=== PATIENT | female | born 1945 | race Caucasian/White ===

== ENCOUNTER 2017-09-20 15:38 | Observation (INO) ==
--- NOTE | 2017-09-20 15:59 | Emergency Department Note ---
Disposition Clinical Impression: Chest pain, Congestive heart failure Disposition: Transfer Short-Term Hosp Condition: Fair Referrals: Venancio Castro, LAND DEVELOPMENT MANAGER [Primary Care Provider] - Forms: ED Satisfaction Letter, Work/School Release Time of Disposition: 17:54 General Adult HPI - General Chief complaint: ED General Medical Stated complaint: cough,unable to pee much,tightness in chest Source: patient Limitations: no limitations Nursing Notes Reviewed: Yes Vital Signs Reviewed: No - History of Present Illness HPI Narrative: Patient presents today with CC of: Chest pain Patient describes issue began around 7 days ago when the patient started developing intermittent chest pain and increasing fatigue. She describes the chest pain as a tightness in her chest. She is also had shortness of breath nausea and occasionally gets sweaty. She has multiple risk factors for cardiac disease. Patient has been history of heart disease she was a smoker in the past but quit she has hypertension and she weighs 291 pounds. Patient states she has never had any testing done on her heart. She is on 2 L of nasal cannula oxygen at night. Patient also has a history of GERD and hiatal hernia. Patient had [employer] [place] legs for lunch today. She denies surgery. She has not had any fever or hemoptysis. She said she has a history of kidney problems. Pain Scale: 0 - Related Data Home Medications Medication Instructions Recorded Confirmed Acetaminophen [Tylenol] 500 mg PO BID 09/20/17 09/20/17 Albuterol Sulfate [Ventolin Hfa] 18 gm IH TID 09/20/17 09/20/17 Aspirin [Lo-Dose Aspirin EC] 81 mg PO DAILY 09/20/17 09/20/17 Buspirone HCl [Buspar] 15 mg PO DAILY 09/20/17 09/20/17 Calcitriol 0.5 mcg PO DAILY 09/20/17 09/20/17 Cetirizine HCl [All Day Allergy] 10 mg PO DAILY 09/20/17 09/20/17 Docusate [Colace] 100 mg PO BID 09/20/17 09/20/17 Ferrous Sulfate [Iron] 325 mg PO DAILY 09/20/17 09/20/17 Furosemide [Lasix] 80 mg PO DAILY 09/20/17 09/20/17 Insulin Glargine,Hum.rec.anlog 35 unit SQ HS 09/20/17 09/20/17 [Lantus Solostar] Insulin LISPRO [Humalog] 0 unit SQ TID 09/20/17 09/20/17 Ipratropium/Albuterol Neb [Duoneb] 3 ml IH Q4HR 09/20/17 09/20/17 Losartan [Cozaar] 25 mg PO DAILY 09/20/17 09/20/17 Montelukast [Singulair] 10 mg PO DAILY 09/20/17 09/20/17 Mv W-Ca/Iron/FA/Lutein/Hrb#179 1 each PO DAILY 09/20/17 09/20/17 [Tyson Multivit For Women Caplet] Nitrofurantoin Macrocrystal 100 mg PO BID 09/20/17 09/20/17 [Nitrofurantoin] OxyCODONE/APAP 7.5/325 [Percocet 1 each PO Q6HR PRN 09/20/17 09/20/17 7.5/325 MG] Potassium Chloride [Klor-Con 10] 10 meq PO TID 09/20/17 09/20/17 Psyllium Husk [Metamucil] 660 gm PO DAILY 09/20/17 09/20/17 Ranitidine HCl [Acid Barrel Lapper] 150 mg PO BID 09/20/17 09/20/17 Ropinirole HCl [Requip] 3 mg PO BID 09/20/17 09/20/17 Sucralfate [Carafate] 1 gm PO 0730,1630 09/20/17 09/20/17 Tizanidine HCl [Zanaflex] 2 mg PO DAILY 09/20/17 09/20/17 Venlafaxine HCl [Venlafaxine HCl 150 mg PO DAILY 09/20/17 09/20/17 ER] Zonisamide [Zonegran] 50 mg PO DAILY 09/20/17 09/20/17 Zonisamide [Zonegran] 100 mg PO HS 09/20/17 09/20/17 Allergies Allergy/AdvReac Type Severity Reaction Status Date / Time allopurinol Allergy See Verified 07/10/16 10:40 Comments Amoxicillin [From Augmentin] Allergy See Verified 07/10/16 10:40 Comments baclofen Allergy See Verified 07/10/16 10:40 Comments butorphanol Allergy See Verified 07/10/16 10:40 Comments clavulanic acid Allergy See Verified 07/10/16 10:40 [From Augmentin] Comments diazepam [From Valium] Allergy See Verified 07/10/16 10:40 Comments Erythromycin Base Allergy See Verified 07/10/16 10:40 Comments Febuxostat [From Uloric] Allergy See Verified 07/10/16 10:40 Comments gabapentin [From Neurontin] Allergy See Verified 07/10/16 10:40 Comments lorazepam [From Ativan] Allergy See Verified 07/10/16 10:40 Comments methocarbamol Allergy See Verified 07/10/16 10:40 Comments metoclopramide [From Reglan] Allergy See Verified 07/10/16 10:40 Comments ondansetron Allergy See Verified 07/10/16 10:40 [From Zofran (as Comments hydrochloride)] pantoprazole Allergy See Verified 07/10/16 10:40 Comments quinidine Allergy See Verified 07/10/16 10:40 Comments theophylline Allergy See Verified 07/10/16 10:40 Comments All systems ED: reviewed and negative except as stated. Review of Systems: As Per HPI Past Medical History - Past Medical History Medical history: Reports: arthritis, CHF, COPD, DVT, diabetes, GERD, hyperlipidemia, hypertension, renal disease, TIA, valvular heart disease, other Surgical history: Reports: cataract, cholecystectomy, other Psychiatric history: Reports: anxiety, depression, other BUSINESS COORDINATOR history: Reports: no BUSINESS COORDINATOR history - Social History Smoking Status: Former smoker Smokeless Tobacco Status: No Alcohol use: Reports: none Drug use: Reports: none Physical Exam I have reviewed initial and available nurse's notes for the patient. The patient 's medications, allergies, and medical history was reviewed. Family, Social & Surg histories were reviewed and are not relevant except as noted above in the history of present illness, or below in the respective specific section. I have reviewed and agree with all vital signs synchronously available in EMR at the time of this dictation. Times documented are the time of computer entry, are not necessarily the time the event occurred. At least 10 systems reviewed with patient or surrogate during physical exam and are otherwise negative. Physical EXAM: General ~ Constitutional: Conscious & cooperative , generally healthy appearance Head: NCAT Eyes: Sclera white , conjunctiva clear , PERRL, non-icteric ENT : L Tympanic membrane normal color and landmarks R Tympanic membrane normal color and landmarks Canals are clear without significant drainage , no obstruction or vesicles , pinna and tragus non tender Nose with pink nasal mucosa, nares patent, non tender without bleeding Mouth - mucous membrane moist , pink , no lesions , no trismus Neck - no masses , supple , no cervical spinous process tenderness Pharynx - no exudate , no petechia or obvious lesions , no airway obstruction or stridor Hematologic ~ Lymphatic ~ Immunologic: Lymphadenopathy normal , no petechia , Skin color, nails and pulses unremarkable. Heart ~ Chest: Reg rate , nml Rhythm , nl S1/S2 , no MRG Lungs: Breath sounds equal , clear to auscultation bilaterally , no wheezing, no rales or rhonchi , no CVA tenderness Gastrointestinal ~ Abd: Soft & non tender , BS + in 4 quads , No HSM or masses , no peritoneal signs GenitoUrinary: Deferred Musculoskeletal ~ Back ~ Extremities: Warm and w/o clubbing , cyanosis , or 2+ edema bilat. No point tenderness , good ROM of major joints Neurologic: Cranial nerves grossly intact, good muscle strength , attention good , cooperative , Alert and oriented x4 Psychiatric: Calm , Insight and mood appropriate , Skin: No rashes , good skin turgor , cap refill 2-3 seconds , warm and dry - General Limitations: no limitations General appearance: alert, in no apparent distress Course Vital Signs Temperature 98.0 F 09/20/17 15:40 Pulse Rate 92 09/20/17 15:40 Respiratory Rate 18 09/20/17 15:40 Blood Pressure 134/66 09/20/17 15:40 O2 Sat by Pulse Oximetry 98 09/20/17 15:40 Temperature 98.0 F 09/20/17 15:40 Pulse Rate 92 09/20/17 15:40 Respiratory Rate 18 09/20/17 15:40 Blood Pressure 134/66 09/20/17 15:40 O2 Sat by Pulse Oximetry 98 09/20/17 15:40 Oxygen Delivery Oxygen Delivery Room Air Medical Decision Making - MDM Narrative Medical decision making narrative: MDM: History and physical exam is consistent with - atypical CP, chf DDx included multiple etiologies for the symptoms such as - atypical CP, ACS, Pneumonia, pneumothorax, Gerd, AAA, PE XRAYS: perihilar infiltrates c/w chf Critical Care: None Condition and evaluation here was discussed in detail. Labwork, and test results were reviewed with the patient, she is agreeable to admission to the hospital for further evaluation and care and diuresis. Patient treated with Lasix and nitroglycerin in the emergency department. I discussed patient detail with Dr. Cruz will admit the patient for to the hospital observation status. - Lab Data Result diagrams: 09/20/17 16:15 18 16:15 Lab Results 09/20/17 09/20/17 09/20/17 Range/Units 16:15 16:15 16:15 WBC 11.7 H (4.3-11.1) K/mcL RBC 3.90 (3.82-4.97) M/mcL Hgb 11.1 L (11.5-15.4) g/dL Hct 34.8 L (35.3-44.9) % MCV 89.2 (83.0-100.0) fL MCH 28.5 (28.0-33.3) pg MCHC 31.9 (31.6-35.5) g/dL RDW 14.6 H (11.5-14.5) % Plt Count 258 (140-400) K/mcL MPV 9.6 (9.4-12.4) fL Immature Gran % 0.5 (0-4) % Seg Neutrophils % 59.7 % Lymphocytes % 27.2 % Monocytes % 11.0 % Eosinophils % 1.3 % Basophils % 0.3 % Neutrophils # 7.0 (1.6-8.9) K/mcL Lymphocytes # 3.2 (0.6-4.6) K/mcL Monocytes # 1.3 (0.0-1.3) K/mcL Eosinophils # 0.2 (0.0-0.6) K/mcL Basophils # 0.0 (0.0-0.2) K/mcL PT 11.4 (9.4-12.1) Seconds INR 1.1 ABG pH (7.32-7.45) pH Units ABG pCO2 (35-45) mmHg ABG pO2 (85-104) mmHg ABG HCO3 (21-27) mEq/L ABG Total CO2 (20-26) mEq/L ABG O2 Saturation (95-98) % ABG Base Excess (-2 to 3) mEq/L Sodium (136-145) mEq/L Potassium (3.5-5.1) mEq/L Chloride (98-107) mEq/L Carbon Dioxide (23-29) mEq/L BUN (8-23) mg/dL Creatinine (0.60-1.20) mg/dL Est GFR ( Amer) (> 60) Est GFR (Non-Af Amer) (> 60) BUN/Creatinine Ratio (6-26) Glucose (70-105) mg/dL Calculated Osmolality (280-300) Calcium (8.6-10.3) mg/dL Troponin I (< 0.04) ng/mL B-Natriuretic Peptide 182 H (Less than 100) pg/mL Urine Color (Yellow) Urine Clarity (Clear) Urine pH (5.0-8.0) pH Units Ur Specific [place] (1.010-1.025) Urine Protein (Neg-Trace) mg/dL Urine Glucose (UA) (Normal) mg/dL Urine Ketones (Negative) mg/dL Urine Blood (Negative) Urine Nitrite (Negative) Urine Bilirubin (Negative) Urine Urobilinogen (Normal) mg/dL Ur Leukocyte Esterase (Negative) Urine Microscopic WBC (0-3) per hpf Ur Squamous Epith Cells (None-Few) per lpf Urine Mucus (Few) Ur Culture Indicated? (NO) 09/20/17 09/20/17 09/20/17 Range/Units 16:15 16:28 17:04 WBC (4.3-11.1) K/mcL RBC (3.82-4.97) M/mcL Hgb (11.5-15.4) g/dL Hct (35.3-44.9) % MCV (83.0-100.0) fL MCH (28.0-33.3) pg MCHC (31.6-35.5) g/dL RDW (11.5-14.5) % Plt Count (140-400) K/mcL MPV (9.4-12.4) fL Immature Gran % (0-4) % Seg Neutrophils % % Lymphocytes % % Monocytes % % Eosinophils % % Basophils % % Neutrophils # (1.6-8.9) K/mcL Lymphocytes # (0.6-4.6) K/mcL Monocytes # (0.0-1.3) K/mcL Eosinophils # (0.0-0.6) K/mcL Basophils # (0.0-0.2) K/mcL PT (9.4-12.1) Seconds INR ABG pH 7.41 (7.32-7.45) pH Units ABG pCO2 47 H (35-45) mmHg ABG pO2 93 (85-104) mmHg ABG HCO3 29 H (21-27) mEq/L ABG Total CO2 31 H (20-26) mEq/L ABG O2 Saturation 97 (95-98) % ABG Base Excess 4 H (-2 to 3) mEq/L Sodium 137 (136-145) mEq/L Potassium 4.0 (3.5-5.1) mEq/L Chloride 104 (98-107) mEq/L Carbon Dioxide 27 (23-29) mEq/L BUN 22 (8-23) mg/dL Creatinine 1.17 (0.60-1.20) mg/dL Est GFR ( Amer) 55 L (> 60) Est GFR (Non-Af Amer) 45 L (> 60) BUN/Creatinine Ratio 19 (6-26) Glucose 161 H (70-105) mg/dL Calculated Osmolality 291 (280-300) Calcium 8.5 L (8.6-10.3) mg/dL Troponin I < 0.03 (< 0.04) ng/mL B-Natriuretic Peptide (Less than 100) pg/mL Urine Color Yellow (Yellow) Urine Clarity Clear (Clear) Urine pH 7.0 (5.0-8.0) pH Units Ur Specific [place] 1.010 (1.010-1.025) Urine Protein 30 H (Neg-Trace) mg/dL Urine Glucose (UA) Normal (Normal) mg/dL Urine Ketones Negative (Negative) mg/dL Urine Blood Negative (Negative) Urine Nitrite Negative (Negative) Urine Bilirubin Negative (Negative) Urine Urobilinogen Normal (Normal) mg/dL Ur Leukocyte Esterase Negative (Negative) Urine Microscopic WBC 0-3 (0-3) per hpf Ur Squamous Epith Cells Moderate H (None-Few) per lpf Urine Mucus Moderate H (Few) Ur Culture Indicated? NO (NO) - EKG Data EKG #1 EKG results narrative: EKG Interpretation Rhythm - normal sinus rhythm Rate - 92 TX - 162 QRS - 88 QTC - 400 ST-T waves - nonspecific T-wave flattening in lead aVL Injury pattern - no acute injury pattern
[2017-09-20 16:32] LABS: Basophils % 0.3 %; Eosinophils # 0.2 K/mcL (0.0-0.6); Eosinophils % 1.3 %; Hematocrit 34.8 % (35.3-44.9); Hemoglobin 11.1 g/dL (11.5-15.4); Immature Granulocytes % 0.5 % (0-4); Lymphocytes # 3.2 K/mcL (0.6-4.6); Lymphocytes % 27.2 %; Mean Corpuscular HGB Conc 31.9 g/dL (31.6-35.5); Mean Corpuscular Hemoglobin 28.5 pg (28.0-33.3); Mean Corpuscular Volume 89.2 fL (83.0-100.0); Mean Platelet Volume 9.6 fL (9.4-12.4); Monocytes # 1.3 K/mcL (0.0-1.3); Platelet Count 258 K/mcL (140-400); Red Cell Distribution Width 14.6 % (11.5-14.5); Segmented Neutrophils % 59.7 %
[2017-09-20 16:34] LABS: INR 1.1; Prothrombin Time 11.4 Seconds (9.4-12.1)
[2017-09-20 16:36] LABS: ABG Base Excess 4 mEq/L (-2 to 3); ABG HCO3 29 mEq/L (21-27); ABG Oxygen Saturation 97 % (95-98); ABG PCO2 47 mmHg (35-45); ABG PH 7.41 pH Units (7.32-7.45); ABG PO2 93 mmHg (85-104); ABG TCO2 31 mEq/L (20-26)
[2017-09-20 16:45] LABS: BUN/Creatinine Ratio 19 (6-26); Blood Urea Nitrogen 22 mg/dL (8-23); Calcium 8.5 mg/dL (8.6-10.3); Carbon Dioxide 27 mEq/L (23-29); Chloride 104 mEq/L (98-107); Glucose 161 mg/dL (70-105); Osmolality,Calculated 291 (280-300); Sodium 137 mEq/L (136-145); eGFR For African Americans 55 (> 60); eGFR For Non-African Americans 45 (> 60)
[2017-09-20 16:46] LABS: Troponin I < 0.03 ng/mL (< 0.04)
[2017-09-20 17:20] LABS: Bilirubin,Urine Negative (Negative); Blood,Urine Negative (Negative); Clarity,Urine Clear (Clear); Color,Urine Yellow (Yellow); Glucose,Urine (UA) Normal (Normal); Ketones,Urine Negative (Negative); Leukocyte Esterase,Urine Negative (Negative); Nitrite,Urine Negative (Negative); Protein,Urine 30 mg/dL (Neg-Trace); Urobilinogen,Urine Normal (Normal)
[2017-09-20] MEDS ORDERED: Furosemide 40 MG/4 ML VIAL IVP ONE (17:24)
[2017-09-20] MEDS ORDERED: Nitroglycerin 1 INCH/GM PACKET TP ONE (17:25)
[2017-09-20 17:32] LABS: Mucus,Urine Moderate (Few); Squamous Epithelial Cell,Urine Moderate per lpf (None-Few); WBC,Urine 0-3 per hpf (0-3)
[2017-09-20] MEDS ORDERED: 0.9 % Sodium Chloride 1,000 ML IVC SCH (20:04)
[2017-09-20] MEDS ORDERED: *HR* OxyCODONE/APAP 7.5/325 TABLET PO PRN (20:04)
[2017-09-20] MEDS ORDERED: Naloxone 0.4 MG/ML INJ IVP PRN (20:04)
[2017-09-20] MEDS ORDERED: Insulin DETEMIR 100 UNIT/ML per UNIT SQ ONE ×2 (21:00→22:50)
[2017-09-20] MEDS ORDERED: *HR* Dextrose 50 % in Water (Syg) 50 ML SYRINGE IVP PRN ×2 (21:07→21:36)
[2017-09-20] MEDS ORDERED: Dextrose Gel 15 GM/37.5 ML TUBE PO PRN ×4 (21:07→21:36)
[2017-09-20] MEDS ORDERED: D5% in Water 1,000 ML IVC PRN ×2 (21:07→21:36)
[2017-09-20] MEDS: Ipratropium/Albuterol Neb 3 ML IH SCH (22:00)
[2017-09-20] MEDS: *HR* HYDROcodone/Acet 7.5/325 mg TABLET PO PRN (22:39)
[2017-09-20] MEDS: Insulin LISPRO 300 UNITS/3 ML VIAL SQ SCH (22:40)
[2017-09-21] MEDS: Ipratropium/Albuterol Neb 3 ML IH SCH ×8 (02:17→23:36)
[2017-09-21] MEDS: *HR* Enoxaparin 40 MG/0.4 ML SYRINGE SQ SCH (06:12)
[2017-09-21] MEDS: Multivit/Ca/Min/Fe/FA 1 TAB TABLET PO SCH (08:03)
[2017-09-21] MEDS: Loratadine 10 MG TABLET PO SCH (08:03)
[2017-09-21] MEDS: Aspirin Enteric Coated 81 MG Tablet PO SCH (08:03)
[2017-09-21 08:04] LABS: Basophils % 0.3 %; Eosinophils # 0.1 K/mcL (0.0-0.6); Eosinophils % 1.1 %; Hematocrit 35.8 % (35.3-44.9); Hemoglobin 11.2 g/dL (11.5-15.4); INR 1.1; Immature Granulocytes % 0.2 % (0-4); Lymphocytes # 2.9 K/mcL (0.6-4.6); Lymphocytes % 27.3 %; Mean Corpuscular HGB Conc 31.3 g/dL (31.6-35.5); Mean Corpuscular Hemoglobin 28.3 pg (28.0-33.3); Mean Corpuscular Volume 90.4 fL (83.0-100.0); Mean Platelet Volume 9.6 fL (9.4-12.4); Monocytes # 1.3 K/mcL (0.0-1.3); Monocytes % 12.1 %; Neutrophils # 6.2 K/mcL (1.6-8.9); Platelet Count 260 K/mcL (140-400); Prothrombin Time 12.3 Seconds (9.4-12.1); Red Blood Count 3.96 M/mcL (3.82-4.97); Red Cell Distribution Width 14.7 % (11.5-14.5)
[2017-09-21] MEDS: Sucralfate 1 GM TABLET PO SCH ×2 (08:04→16:02)
[2017-09-21] MEDS: Famotidine 20 MG TABLET PO SCH (08:05)
[2017-09-21] MEDS: Venlafaxine XR (24 HR) 150 MG CAP.ER.24H PO SCH (08:07)
[2017-09-21] MEDS: Insulin LISPRO 300 UNITS/3 ML VIAL SQ SCH ×4 (08:07→21:03)
[2017-09-21] MEDS: tiZANidine 4 MG TABLET PO SCH (08:08)
[2017-09-21] MEDS: Furosemide 40 MG/4 ML VIAL IVP SCH (08:08)
[2017-09-21] MEDS: Psyllium 1 PACKET POWD.PACK PO SCH (08:08)
[2017-09-21] MEDS: *HR* HYDROcodone/Acet 7.5/325 mg TABLET PO PRN ×2 (08:16→20:41)
[2017-09-21 08:19] LABS: Calcium 8.7 mg/dL (8.6-10.3); Potassium 3.7 mEq/L (3.5-5.1)
[2017-09-21] MEDS ORDERED: Furosemide 40 MG/4 ML VIAL IVP SCH (09:00)
[2017-09-21] MEDS ORDERED: Furosemide 40 MG TABLET PO SCH (09:00)
--- NOTE | 2017-09-21 09:37 | Internal Med History&Physical ---
Date of Encounter: 09/21/17 Time of Encounter: 09:33 Assessment and Plan (1) IDDM (insulin dependent diabetes mellitus) Current visit: Yes Status: Chronic On Insulin long acting , sliding scale Blood sugars s table . Continue to followup and adjust meds (2) Seizure Current visit: Yes Status: Chronic apparently on seizure meds she denies any complains , followup . Continue meds as before (3) Chest pain Current visit: No Status: Acute Chest pain and tightness . EKG was within normal limits no new change when compared to previous EK some flattening t wave in V1 and V2 / Troponin negative . Continue to watch on oxygen . doubtful that her chest tightness is cardiac in nature She give hx of Hiatus hernia. On H2 blockers . TX ruled out Qualifiers: Chest pain type: unspecified Qualified Code(s): R07.9 - Chest pain, unspecified (4) GERD (gastroesophageal reflux disease) Current visit: No Status: Chronic Hx of hiatal hernia some GI reflux On pepcid since Zantac was not available continue present meds , keep her head elevated h/h stable slightly low Qualifiers: Esophagitis presence: without esophagitis Qualified Code(s): K21.9 - Gastro -esophageal reflux disease without esophagitis (5) Morbid obesity with BMI of 40.0-44.9, adult Current visit: No Status: Chronic Obese , no new change , drop in her weight could help a lot (6) Congestive heart failure Current visit: Yes Status: Acute She had cardiac Echo done in 07/2016 with ef of 60% , study was some what sub optimal . BNP is slightly high . Switched her to iV lasix and see seems to be making good urine Her BP is some what on the lower side hold losartan for now and recheck . Her lasix could be switched back to oral in a day or two Her breathing is getting better quickly and she feels that staying over night had helped . if she continues to improve she could be discharged tomorrow. TX has been ruled out Qualifiers: Heart failure type: diastolic Qualified Code(s): I50.30 - Unspecified diastolic (congestive) heart failure Internal Medicine - H&P: HPI Chief complaint: SOB and chest tightness Admitted From: Emergency Dept History of present illness: Ms. Reddy is a 72 year old female with significant hx of Hital hernia , IDDM , Obesity, Seizure disorder admitted for chest tightness for the last one week . She has been having some chest tightens for the last one week , continuous no pain associated with occasional SOB and cough No fever or chill No weakness in her arms or radiation of pain . No relieving factors for her chest tightness . She uses oxygen at home occasionally .Since her admission she feels that her breathing has improved a lot . She usually sleeps in chair and is unable to laydown flat . Occasionally orthopnea as well . She tells me that she has renal failure. Past Med Surg Social Fam HX - Past Medical History Medical history: arthritis, CHF, COPD, DVT, diabetes, GERD, hyperlipidemia, hypertension, renal disease, TIA, valvular heart disease, other Additional medical history: EDEMA. CONSTIPATION. OSTEOPROSIS. HIATAL HERNIA. PELVIC FX. IBS. MVP. OSTEOPOROSIS. DIVERTICULITIS. DDD WITH CHRONIC BACK PAIN. TARDIVE DYSKENESIA. SOMATAFORM D/O. VIT B12 DEF. PERIPHERAL NEUROPATHY. PROTEINURIA. ANEMIA. ELEVATED URIC ACID. URINARY INCONTINENCE. UNSTEADY GAIT. BLEEDING BEHIND EYES. CELLULITIS. ABNORMAL INVOLUNTARY MOVEMENTS. GASTROPARESIS Psychiatric history: anxiety, depression, other - Past Surgical History Surgical History: cataract, cholecystectomy, other Additional surgical history: T&A. CATARACT SURGERY BILAT - Social History Smoking Status: Former smoker Smokeless Tobacco Status: No Alcohol use: none Drug use: none - Family History Mother Living Status: Hx Family Cardiac Disorders: No Hx Family Respiratory Disorders: No Hx Family Cancer: Yes Hx Family GI Disorders: No Hx Family Endocrine Disorder: No Hx Family Neuromuscular Disorders: No Hx Family Neurologic Disorders: No Hx Family Autoimmune Disorders: No Father Living Status: Hx Family Cardiac Disorders: No Hx Family Respiratory Disorders: No Hx Family Cancer: No Hx Family GI Disorders: Yes Hx Family Endocrine Disorder: No Hx Family Neuromuscular Disorders: No Hx Family Neurologic Disorders: No Hx Family HEENT Disorders: No Hx Family Autoimmune Disorders: No Internal Medicine - H&P: Meds Acetaminophen [Tylenol] 500 mg PO BID 09/20/17 [History] Albuterol Sulfate [Ventolin Hfa] 18 gm IH TID 09/20/17 [History] Aspirin [Lo-Dose Aspirin EC] 81 mg PO DAILY 09/20/17 [History] Buspirone HCl [Buspar] 15 mg PO DAILY 09/20/17 [History] Calcitriol 0.5 mcg PO DAILY 09/20/17 [History] Cetirizine HCl [All Day Allergy] 10 mg PO DAILY 09/20/17 [History] Docusate [Colace] 100 mg PO BID 09/20/17 [History] Ferrous Sulfate [Iron] 325 mg PO DAILY 09/20/17 [History] Furosemide [Lasix] 80 mg PO DAILY 09/20/17 [History] Insulin Glargine,Hum.rec.anlog [Lantus Solostar] 35 unit SQ HS 09/20/17 [History ] Insulin LISPRO [Humalog] 0 unit SQ TID 09/20/17 [History] Ipratropium/Albuterol Neb [Duoneb] 3 ml IH Q4HR 09/20/17 [History] Losartan [Cozaar] 25 mg PO DAILY 09/20/17 [History] Montelukast [Singulair] 10 mg PO DAILY 09/20/17 [History] Mv W-Ca/Iron/FA/Lutein/Hrb#179 [Tyson Multivit For Women Caplet] 1 each PO DAILY 09/20/17 [History] Nitrofurantoin Macrocrystal [Nitrofurantoin] 100 mg PO BID 09/20/17 [History] OxyCODONE/APAP 7.5/325 [Percocet 7.5/325 MG] 1 each PO Q6HR PRN 09/20/17 [ History] Potassium Chloride [Klor-Con 10] 10 meq PO TID 09/20/17 [History] Psyllium Husk [Metamucil] 660 gm PO DAILY 09/20/17 [History] Ranitidine HCl [Acid Catering Driver] 150 mg PO BID 09/20/17 [History] Ropinirole HCl [Requip] 3 mg PO BID 09/20/17 [History] Sucralfate [Carafate] 1 gm PO 0730,1630 09/20/17 [History] Tizanidine HCl [Zanaflex] 2 mg PO DAILY 09/20/17 [History] Venlafaxine HCl [Venlafaxine HCl ER] 150 mg PO DAILY 09/20/17 [History] Zonisamide [Zonegran] 50 mg PO DAILY 09/20/17 [History] Zonisamide [Zonegran] 100 mg PO HS 09/20/17 [History] 3 Allergy/AdvReac Type Severity Reaction Status Date / Time allopurinol Allergy See Verified 07/10/16 10:40 Comments Amoxicillin [From Augmentin] Allergy See Verified 07/10/16 10:40 Comments baclofen Allergy See Verified 07/10/16 10:40 Comments butorphanol Allergy See Verified 07/10/16 10:40 Comments clavulanic acid Allergy See Verified 07/10/16 10:40 [From Augmentin] Comments diazepam [From Valium] Allergy See Verified 07/10/16 10:40 Comments Erythromycin Base Allergy See Verified 07/10/16 10:40 Comments Febuxostat [From Uloric] Allergy See Verified 07/10/16 10:40 Comments gabapentin [From Neurontin] Allergy See Verified 07/10/16 10:40 Comments lorazepam [From Ativan] Allergy See Verified 07/10/16 10:40 Comments methocarbamol Allergy See Verified 07/10/16 10:40 Comments metoclopramide [From Reglan] Allergy See Verified 07/10/16 10:40 Comments ondansetron Allergy See Verified 07/10/16 10:40 [From Zofran (as Comments hydrochloride)] pantoprazole Allergy See Verified 07/10/16 10:40 Comments quinidine Allergy See Verified 07/10/16 10:40 Comments theophylline Allergy See Verified 07/10/16 10:40 Comments All Systems PM: A 10-system review of systems was performed and is negative for pertinent findings except as documented above in the HPI. - Constitutional Constitutional: no anorexia, no chills, no excessive sweating, no fatigue, no fever(s), no falls, no weakness - EENT Eyes: no blurry vision, no diplopia, no discharge, no itchy eyes, no loss of vision, no photophobia Nose, mouth and throat: no dysphagia, no nasal congestion, no nasal discharge, no nasal obstruction, no sinus pain, no sore throat, no throat swelling - Cardiovascular Cardiovascular ROS IM: chest pain, dyspnea, dyspnea on exertion, edema, lightheadedness, orthopnea, paroxysmal nocturnal dyspnea, no claudication, no diaphoresis, no irregular heart rhythm, no palpitations - Respiratory Respiratory: cough, dyspnea, dyspnea on exertion, no wheezing, no snoring, no pain on inspiration, no chest congestion, no change in phlegm color - Gastrointestinal Gastrointestinal: heartburn, no abdominal pain, no belching, no change in bowel habits, no constipation, no cramping, no diarrhea, no dyspepsia, no dysphagia, no hematochezia, no loose stools, no melena, no nausea, no vomiting - Genitourinary Genitourinary: no dysuria, no nocturia, no pelvic pain - Musculoskeletal Musculoskeletal ROS IM: limited range of motion, myalgias, stiffness, no joint swelling, no muscle cramps - Neurological Neurological ROS: convulsions, numbness, no headache(s), no lack of coordination , no memory loss, no tremor(s) - Psychiatric Psychiatric: no homicidal ideation, no suicidal ideation - Constitutional Vitals: Temp Pulse Resp BP Pulse Ox 98.4 F 94 22 100/55 97 09/21/17 07:23 09/21/17 07:23 09/21/17 07:23 09/21/17 07:23 09/21/17 07:23 General appearance: Present: A&O X 3, morbidly obese, no acute distress, answers questions appropriately Exam: sitting in chair comfortable - Head Head exam: Present: atraumatic - Eye Eye exam: Present: EOMI, PERRL Pupils: Present: PERRL - Neck Neck exam general surgery: Present: full ROM. Absent: tenderness Additional comments: HJR + - Respiratory Respiratory exam: Present: CTAB. Absent: respiratory distress, rhonchi, stridor , wheezes, tachypnea Additional comments: Air entry equal some what decrease clear no basal crackles noted - Cardiovascular Cardiovascular exam: Present: RRR, +S1, +S2. Absent: gallop, irregular rhythm, JVD - GI/Abdominal GI/Abdominal exam: Present: normal bowel sounds, soft. Absent: distended, guarding, hernia, rebound, rigid Additional comments: obese abdomen - Extremities Exam Extremities exam: Absent: pedal edema, tenderness Additional comments: minimal edema noted thick legs Internal Med - H&P Results - Labs CBC & Chem 7: 09/21/17 08:00 09/21/17 08:00 Labs: Short CBC 09/21/17 Range/Units 08:00 WBC 10.4 (4.3-11.1) K/mcL Hgb 11.2 L (11.5-15.4) g/dL Hct 35.8 (35.3-44.9) % Plt Count 260 (140-400) K/mcL Neutrophils # 6.2 (1.6-8.9) K/mcL BMP 09/21/17 08:00 Sodium 142 Potassium 3.7 Chloride 104 Carbon Dioxide 32 H BUN 19 Creatinine 1.18 Glucose 136 H Calcium 8.7 Cardiac Enzymes 09/20/17 09/21/17 09/21/17 Range/Units 21:12 02:10 08:00 Troponin I < 0.03 < 0.03 < 0.03 (< 0.04) ng/mL - Impressions ITS Impressions Chest X-Ray 09/21/17 06:00 IMPRESSION: 1. No significant change. D/ / Henrry Valdivia MD / Henrry Valdivia MD Interpreting Provider: Henrry Valdivia MD - VTE Documentation of Mechanical Device: Graduated compression elastic hosiery
[2017-09-21] MEDS: GuaiFENesin/Codeine Oral Soln 5 ML UDC PO SCH ×3 (11:16→23:35)
[2017-09-21] MEDS ORDERED: Insulin DETEMIR 100 UNIT/ML X5UNITS SQ SCH (21:00)
[2017-09-22] MEDS: Ipratropium/Albuterol Neb 3 ML IH SCH ×3 (04:08→11:05)
[2017-09-22] MEDS: *HR* HYDROcodone/Acet 7.5/325 mg TABLET PO PRN (06:26)
[2017-09-22] MEDS: GuaiFENesin/Codeine Oral Soln 5 ML UDC PO SCH (06:27)
[2017-09-22] MEDS: *HR* Enoxaparin 40 MG/0.4 ML SYRINGE SQ SCH (06:29)
[2017-09-22] MEDS: Sucralfate 1 GM TABLET PO SCH (06:31)
[2017-09-22 07:28] VITALS: BP 103/52
[2017-09-22] MEDS: Insulin LISPRO 300 UNITS/3 ML VIAL SQ SCH ×2 (07:37→11:49)
[2017-09-22] MEDS: Psyllium 1 PACKET POWD.PACK PO SCH (07:58)
[2017-09-22] MEDS: Furosemide 40 MG/4 ML VIAL IVP SCH (07:59)
[2017-09-22] MEDS: Famotidine 20 MG TABLET PO SCH (07:59)
[2017-09-22] MEDS: tiZANidine 4 MG TABLET PO SCH (08:00)
[2017-09-22] MEDS: Multivit/Ca/Min/Fe/FA 1 TAB TABLET PO SCH (08:00)
[2017-09-22] MEDS: Aspirin Enteric Coated 81 MG Tablet PO SCH (08:00)
[2017-09-22] MEDS: Venlafaxine XR (24 HR) 150 MG CAP.ER.24H PO SCH (08:00)
[2017-09-22] MEDS: Loratadine 10 MG TABLET PO SCH (08:00)
--- NOTE | 2017-09-22 09:57 | Electrocardiograph Report ---
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
--- NOTE | 2017-09-22 14:50 | Discharge Summary ---
Date of Encounter: 09/22/17 Time of Encounter: 14:48 - Discharge Diagnosis (1) Chest pain Priority: Primary Status: Resolved Comments: improved. Qualifiers: Chest pain type: unspecified Qualified Code(s): R07.9 - Chest pain, unspecified (2) IDDM (insulin dependent diabetes mellitus) Priority: Secondary Status: Chronic Comments: controlled with current meds. f/u with PCP. (3) GERD (gastroesophageal reflux disease) Priority: Secondary Status: Chronic Comments: improved. conitnue current meds. f/u with PCP, Qualifiers: Esophagitis presence: without esophagitis Qualified Code(s): K21.9 - Gastro -esophageal reflux disease without esophagitis (4) Morbid obesity with BMI of 40.0-44.9, adult Priority: Secondary Status: Chronic Comments: dietary education provided. Hospital course: Ms. Reddy is a 72 year old female discharging to home. Lives with son. came in through the emergency room with complaints of chest tightness/pain. States she had had tightness for about one week prior to coming to the emergency room. Complains of nonproductive cough. Complains of increased acid reflux. States all has resolved except slight often on cough at this time. Denies fever , chills, nausea, vomiting or diarrhea. Denies shortness of breath or chest pain. Patient uses wheelchair to get around at home. Patient is doing the same things at this time in room. States she is ready to discharge to home. Discharge discussed with: patient, nurse - Time Spent with Patient Total time spent providing and/or coordinating discharge services: Less than 30 minutes - Discharge Medications Home Medications: Acetaminophen [Tylenol] 500 mg PO BID 09/20/17 [History] Albuterol Sulfate [Ventolin Hfa] 18 gm IH TID 09/20/17 [History] Aspirin [Lo-Dose Aspirin EC] 81 mg PO DAILY 09/20/17 [History] Buspirone HCl [Buspar] 15 mg PO DAILY 09/20/17 [History] Calcitriol 0.5 mcg PO DAILY 09/20/17 [History] Cetirizine HCl [All Day Allergy] 10 mg PO DAILY 09/20/17 [History] Docusate [Colace] 100 mg PO BID 09/20/17 [History] Ferrous Sulfate [Iron] 325 mg PO DAILY 09/20/17 [History] Furosemide [Lasix] 80 mg PO DAILY 09/20/17 [History] Insulin Glargine,Hum.rec.anlog [Lantus Solostar] 35 unit SQ HS 09/20/17 [History ] Insulin LISPRO [Humalog] 0 unit SQ TID 09/20/17 [History] Ipratropium/Albuterol Neb [Duoneb] 3 ml IH Q4HR 09/20/17 [History] Losartan [Cozaar] 25 mg PO DAILY 09/20/17 [History] Montelukast [Singulair] 10 mg PO DAILY 09/20/17 [History] Mv W-Ca/Iron/FA/Lutein/Hrb#179 [[employer] Multivit For Women Caplet] 1 each PO DAILY 09/20/17 [History] Nitrofurantoin Macrocrystal [Nitrofurantoin] 100 mg PO BID 09/20/17 [History] OxyCODONE/APAP 7.5/325 [Percocet 7.5/325 MG] 1 each PO Q6HR PRN 09/20/17 [ History] Potassium Chloride [Klor-Con 10] 10 meq PO TID 09/20/17 [History] Psyllium Husk [Metamucil] 660 gm PO DAILY 09/20/17 [History] Ranitidine HCl [Acid Parts Counter Representative] 150 mg PO BID 09/20/17 [History] Ropinirole HCl [Requip] 3 mg PO BID 09/20/17 [History] Sucralfate [Carafate] 1 gm PO 0730,1630 09/20/17 [History] Tizanidine HCl [Zanaflex] 2 mg PO DAILY 09/20/17 [History] Venlafaxine HCl [Venlafaxine HCl ER] 150 mg PO DAILY 09/20/17 [History] Zonisamide [Zonegran] 50 mg PO DAILY 09/20/17 [History] Zonisamide [Zonegran] 100 mg PO HS 09/20/17 [History] Zonisamide [Zonegran] 50 mg PO HS capsule 09/22/17 [Rx] Zonisamide [Zonegran] 100 mg PO QAM capsule 09/22/17 [Rx] Allergies/Adverse Reactions: 3 Allergy/AdvReac Type Severity Reaction Status Date / Time allopurinol Allergy See Verified 07/10/16 10:40 Comments Amoxicillin [From Augmentin] Allergy See Verified 07/10/16 10:40 Comments baclofen Allergy See Verified 07/10/16 10:40 Comments butorphanol Allergy See Verified 07/10/16 10:40 Comments clavulanic acid Allergy See Verified 07/10/16 10:40 [From Augmentin] Comments diazepam [From Valium] Allergy See Verified 07/10/16 10:40 Comments Erythromycin Base Allergy See Verified 07/10/16 10:40 Comments Febuxostat [From Uloric] Allergy See Verified 07/10/16 10:40 Comments gabapentin [From Neurontin] Allergy See Verified 07/10/16 10:40 Comments lorazepam [From Ativan] Allergy See Verified 07/10/16 10:40 Comments methocarbamol Allergy See Verified 07/10/16 10:40 Comments metoclopramide [From Reglan] Allergy See Verified 07/10/16 10:40 Comments ondansetron Allergy See Verified 07/10/16 10:40 [From Zofran (as Comments hydrochloride)] pantoprazole Allergy See Verified 07/10/16 10:40 Comments quinidine Allergy See Verified 07/10/16 10:40 Comments theophylline Allergy See Verified 07/10/16 10:40 Comments Date of admission: 09/20/17 18:07 Primary care physician: Venancio Castro CNP Consults: 09/22/17 10:18 Consult to [employer] [CONS] Routine Reason for SW Consult: requesting additional info regarding living will/POA Discharging clinician: Arias Armendariz Anticipated date of discharge: 09/22/17 - Constitutional Vitals: Temp Pulse Resp BP Pulse Ox 98.3 F 97 16 103/52 97 09/22/17 11:57 09/22/17 14:06 09/22/17 14:06 09/22/17 07:27 09/22/17 14:06 General appearance: Present: A&O X 3, morbidly obese, no acute distress, answers questions appropriately - Head Head exam: Present: atraumatic, normocephalic - Eye Eye exam: Present: PERRL, conjuntiva pink, sclera anicteric Pupils: Present: PERRL - Neck Neck exam general surgery: Present: supple, trachea midline. Absent: lymphadenopathy - Respiratory Respiratory exam: Present: CTAB. Absent: accessory muscle use, rales, rhonchi, wheezes - Cardiovascular Cardiovascular exam: Present: RRR, +S1, +S2. Absent: diastolic murmur, gallop, rubs, systolic murmur - GI/Abdominal GI/Abdominal exam: Present: normal bowel sounds, soft, no peritoneal signs. Absent: distended, tenderness - Extremities Exam Extremities exam: Present: warm, radial pulses palpable and symmetrical. Absent : calf tenderness, cyanotic, pedal edema Additional comments: Nonpitting bilateral lower extremity edema. Scot hose on. - Neurological Exam Neurological exam: Present: CN II-XII intact, oriented X3, no focal deficits. Absent: pronater drift, facial droop, speech deficit - Skin Skin exam: Present: dry, intact - Patient Status Disposition: Home, Self-Care Condition: Good Functional capacity at discharge: wheelchair bound Overall status at discharge: patient is back to baseline - Discharge Instructions Follow Up With: Venancio Castro, [employer] [Primary Care Provider] - - VTE Documentation of Mechanical Device: Graduated compression elastic hosiery
== END 2017-09-22 15:30 | disposition home or self-care (01) ==
LOC: EMEROOGRE 15:38 → INPGRE 15:38
PROVIDERS: ADMIT Internal Medicine; ATTEND Internal Medicine

== ENCOUNTER 2019-08-08 19:21 | Observation (INO) ==
[2019-08-08] MEDS ORDERED: Aspirin 81 MG TAB.CHEW PO STA (19:45)
[2019-08-08] MEDS ORDERED: Ipratropium 1 PUFF INHALER IH STA (19:59)
[2019-08-08 20:14] LABS: Basophils # 0.1 K/mcL (0.0-0.2); Basophils % 0.6 %; Eosinophils # 0.3 K/mcL (0.0-0.6); Eosinophils % 3.5 %; Hematocrit 35.3 % (35.3-44.9); Hemoglobin 11.2 g/dL (11.5-15.4); Immature Granulocytes % 0.2 % (0-4); Lymphocytes # 3.8 K/mcL (0.6-4.6); Lymphocytes % 44.8 %; Mean Corpuscular HGB Conc 31.7 g/dL (31.6-35.5); Mean Corpuscular Hemoglobin 27.8 pg (28.0-33.3); Mean Corpuscular Volume 87.6 fL (83.0-100.0); Mean Platelet Volume 9.4 fL (9.4-12.4); Monocytes % 12.1 %; Neutrophils # 3.3 K/mcL (1.6-8.9); Platelet Count 288 K/mcL (140-400); Red Blood Count 4.03 M/mcL (3.82-4.97); Red Cell Distribution Width 14.7 % (11.5-14.5); Segmented Neutrophils % 38.8 %; White Blood Count 8.5 K/mcL (4.3-11.1)
[2019-08-08] MEDS ORDERED: Isovue-370 500 ML BOTTLE IVP ONE (20:30)
[2019-08-08 20:32] LABS: BUN/Creatinine Ratio 20 (6-26); Blood Urea Nitrogen 31 mg/dL (8-23); Calcium 9.2 mg/dL (8.6-10.3); Carbon Dioxide 33 mEq/L (23-29); Chloride 103 mEq/L (98-107); Glucose 153 mg/dL (70-105); Osmolality,Calculated 304 (280-300); Sodium 142 mEq/L (136-145); Troponin I < 0.03 ng/mL (< 0.04); eGFR For African Americans 39 (> 60); eGFR For Non-African Americans 32 (> 60)
[2019-08-08] MEDS ORDERED: Furosemide 20 MG/2 ML VIAL IVP ONE (21:55)
[2019-08-08] MEDS ORDERED: *HR* Enoxaparin 40 MG/0.4 ML SYRINGE SQ ONE (22:08)
[2019-08-09 05:35] LABS: Hematocrit 33.8 % (35.3-44.9); Hemoglobin 10.6 g/dL (11.5-15.4); Mean Corpuscular HGB Conc 31.4 g/dL (31.6-35.5); Mean Corpuscular Hemoglobin 27.6 pg (28.0-33.3); Mean Platelet Volume 9.7 fL (9.4-12.4); Platelet Count 266 K/mcL (140-400); Red Blood Count 3.84 M/mcL (3.82-4.97); Red Cell Distribution Width 14.8 % (11.5-14.5); White Blood Count 8.8 K/mcL (4.3-11.1)
[2019-08-09 05:48] LABS: Calcium 8.9 mg/dL (8.6-10.3); Potassium 3.9 mEq/L (3.5-5.1)
[2019-08-09] MEDS ORDERED: NON-FORMULARY MEDICATION 1 EACH EACH (Furosemide [Lasix] 80 MG) PO SCH (09:00)
[2019-08-09] MEDS ORDERED: Furosemide 20 MG/2 ML VIAL IVP SCH (09:00)
[2019-08-09] MEDS: Multivit/Ca/Min/Fe/FA 1 TAB TABLET PO SCH (09:22)
[2019-08-09] MEDS: Loratadine 10 MG TABLET PO SCH (09:23)
[2019-08-09] MEDS: Sucralfate 1 GM TABLET PO SCH ×4 (09:23→20:56)
[2019-08-09] MEDS: Aspirin Enteric Coated 81 MG Tablet PO SCH (09:23)
[2019-08-09] MEDS: Cholecalciferol (D-3) 1,000 UNIT (25MCG) TABLET PO SCH (09:28)
[2019-08-09] MEDS ORDERED: Ipratropium/Albuterol Neb 3 ML IH SCH (11:00)
[2019-08-09] MEDS: Fluticasone Propionate Nasal 50 MCG/SPRAY BOTTLE NS SCH (12:39)
[2019-08-09] MEDS ORDERED: *HR* Dextrose 50 % in Water (Syg) 50 ML SYRINGE IVP PRN (13:09)
[2019-08-09] MEDS ORDERED: D5% in Water 1,000 ML IVC PRN (13:09)
[2019-08-09] MEDS ORDERED: Dextrose Gel 15 GM/37.5 ML TUBE PO PRN ×2 (13:09)
[2019-08-09] MEDS: Insulin LISPRO 300 UNITS/3 ML VIAL SQ SCH ×2 (13:40→16:58)
[2019-08-09] MEDS: *HR* OxyCODONE/APAP 5/325 TABLET PO PRN (15:47)
[2019-08-09] MEDS: tiZANidine 4 MG TABLET PO PRN ×2 (15:48→20:57)
[2019-08-09] MEDS: Ipratropium 1 PUFF INHALER IH SCH ×2 (16:48→22:01)
[2019-08-09] MEDS: Furosemide 40 MG TABLET PO SCH (16:57)
[2019-08-09] MEDS ORDERED: Insulin LISPRO 300 UNITS/3 ML VIAL SQ SCH (21:00)
[2019-08-09] MEDS ORDERED: Insulin DETEMIR 100 UNIT/ML X5UNITS SQ SCH (21:00)
[2019-08-09] MEDS ORDERED: *HR* Enoxaparin 40 MG/0.4 ML SYRINGE SQ SCH (21:00)
[2019-08-10] MEDS: *HR* OxyCODONE/APAP 5/325 TABLET PO PRN ×2 (01:29→09:41)
[2019-08-10] MEDS: Ipratropium 1 PUFF INHALER IH SCH ×2 (04:05→09:55)
[2019-08-10 05:59] LABS: Hematocrit 35.9 % (35.3-44.9); Hemoglobin 11.2 g/dL (11.5-15.4); Mean Corpuscular HGB Conc 31.2 g/dL (31.6-35.5); Mean Corpuscular Hemoglobin 27.6 pg (28.0-33.3); Mean Corpuscular Volume 88.4 fL (83.0-100.0); Platelet Count 276 K/mcL (140-400); Red Blood Count 4.06 M/mcL (3.82-4.97); Red Cell Distribution Width 14.7 % (11.5-14.5); White Blood Count 8.8 K/mcL (4.3-11.1)
[2019-08-10 06:15] LABS: Albumin/Globulin Ratio 1.5 (1.1-2.2); Bilirubin,Total 0.5 mg/dL (0.3-1.0); Calcium 8.9 mg/dL (8.6-10.3); Globulin 2.7 g/dL (2.4-3.5); Magnesium 2.3 mg/dL (1.6-2.6); Potassium 3.9 mEq/L (3.5-5.1); Total Protein 6.7 g/dL (6.4-8.9)
[2019-08-10 07:11] VITALS: BP 111/71
[2019-08-10] MEDS: tiZANidine 4 MG TABLET PO PRN (08:02)
[2019-08-10] MEDS: Aspirin Enteric Coated 81 MG Tablet PO SCH (08:02)
[2019-08-10] MEDS: Multivit/Ca/Min/Fe/FA 1 TAB TABLET PO SCH (08:02)
[2019-08-10] MEDS: Sucralfate 1 GM TABLET PO SCH (08:03)
[2019-08-10] MEDS: Loratadine 10 MG TABLET PO SCH (08:03)
[2019-08-10] MEDS: Cholecalciferol (D-3) 1,000 UNIT (25MCG) TABLET PO SCH (08:03)
[2019-08-10] MEDS: Furosemide 40 MG TABLET PO SCH (08:03)
[2019-08-10] MEDS: Insulin LISPRO 300 UNITS/3 ML VIAL SQ SCH (08:06)
[2019-08-10] MEDS: Fluticasone Propionate Nasal 50 MCG/SPRAY BOTTLE NS SCH (08:07)
[2019-08-10 08:53] LABS: Estimated Average Glucose 183 mg/dl
== END 2019-08-10 12:05 | disposition home or self-care (01) ==
LOC: INPGRE 19:21 → EMEROOGRE 19:21 → UNDODISOB 23:20 → INPGRE 23:21
PROVIDERS: ADMIT Family Medicine; ATTEND Family Medicine

== ENCOUNTER 2019-09-14 13:32 | Observation (INO) ==
[2019-09-14 14:17] LABS: Bilirubin,Urine Negative (Negative); Blood,Urine Trace-intact (Negative); Clarity,Urine Clear (Clear); Color,Urine Yellow (Yellow); Glucose,Urine (UA) Normal (Normal); Ketones,Urine Negative (Negative); Leukocyte Esterase,Urine Small (Negative); Nitrite,Urine Negative (Negative); PH,Urine 6.5 pH Units (5.0-8.0); Protein,Urine Negative (Neg-Trace); Specific Gravity,Urine 1.015 (1.010-1.025); Urobilinogen,Urine Normal (Normal)
[2019-09-14 14:19] LABS: Basophils % 0.4 %; Eosinophils # 0.1 K/mcL (0.0-0.6); Eosinophils % 0.9 %; Hematocrit 35.9 % (35.3-44.9); Hemoglobin 11.5 g/dL (11.5-15.4); Immature Granulocytes % 0.3 % (0-4); Lymphocytes # 2.8 K/mcL (0.6-4.6); Lymphocytes % 35.5 %; Mean Corpuscular Volume 87.6 fL (83.0-100.0); Mean Platelet Volume 9.7 fL (9.4-12.4); Monocytes # 0.7 K/mcL (0.0-1.3); Monocytes % 8.8 %; Neutrophils # 4.3 K/mcL (1.6-8.9); Platelet Count 243 K/mcL (140-400); Red Cell Distribution Width 14.5 % (11.5-14.5); Segmented Neutrophils % 54.1 %; White Blood Count 7.9 K/mcL (4.3-11.1)
[2019-09-14 14:22] LABS: Bacteria,Urine Few per hpf (None-Few); RBC,Urine 0-3 per hpf (0-3); Squamous Epithelial Cell,Urine Few per lpf (None-Few)
[2019-09-14 14:37] LABS: Albumin 3.6 g/dL (3.5-5.7); Albumin/Globulin Ratio 1.3 (1.1-2.2); Bilirubin,Total 0.6 mg/dL (0.3-1.0); Calcium 9.1 mg/dL (8.6-10.3); Globulin 2.7 g/dL (2.4-3.5); Potassium 4.1 mEq/L (3.5-5.1); Total Protein 6.3 g/dL (6.4-8.9)
[2019-09-14] MEDS ORDERED: *HR* OxyCODONE/APAP 5/325 TABLET PO ONE (14:40)
[2019-09-14] MEDS ORDERED: D5% in Water 1,000 ML IVC PRN (16:06)
[2019-09-14] MEDS ORDERED: *HR* Dextrose 50 % in Water (Syg) 50 ML SYRINGE IVP PRN (16:06)
[2019-09-14] MEDS ORDERED: Dextrose Gel 15 GM/37.5 ML TUBE PO PRN ×2 (16:06)
[2019-09-14] MEDS: Ipratropium/Albuterol Neb 3 ML IH SCH ×2 (16:31→21:35)
[2019-09-14] MEDS: Insulin LISPRO 300 UNITS/3 ML VIAL SQ SCH (17:11)
[2019-09-14] MEDS: Furosemide 40 MG TABLET PO SCH (17:11)
[2019-09-14] MEDS: Insulin DETEMIR 100 UNIT/ML X5UNITS SQ SCH (20:00)
[2019-09-14] MEDS: Doxycycline 100 MG CAPSULE PO SCH (20:00)
[2019-09-14] MEDS: tiZANidine 4 MG TABLET PO PRN (20:01)
[2019-09-14] MEDS: *HR* OxyCODONE/APAP 5/325 TABLET PO PRN (23:17)
[2019-09-15] MEDS: Ipratropium/Albuterol Neb 3 ML IH SCH ×4 (04:09→22:15)
[2019-09-15] MEDS: tiZANidine 4 MG TABLET PO PRN ×3 (04:38→21:00)
[2019-09-15 05:24] LABS: Basophils % 0.4 %; Eosinophils # 0.1 K/mcL (0.0-0.6); Eosinophils % 0.9 %; Hematocrit 35.2 % (35.3-44.9); Immature Granulocytes % 0.3 % (0-4); Lymphocytes # 3.7 K/mcL (0.6-4.6); Lymphocytes % 36.1 %; Mean Corpuscular HGB Conc 31.3 g/dL (31.6-35.5); Mean Corpuscular Hemoglobin 27.4 pg (28.0-33.3); Mean Corpuscular Volume 87.6 fL (83.0-100.0); Mean Platelet Volume 9.6 fL (9.4-12.4); Monocytes # 1.1 K/mcL (0.0-1.3); Monocytes % 10.4 %; Neutrophils # 5.4 K/mcL (1.6-8.9); Platelet Count 234 K/mcL (140-400); Red Blood Count 4.02 M/mcL (3.82-4.97); Red Cell Distribution Width 14.5 % (11.5-14.5); Segmented Neutrophils % 51.9 %; White Blood Count 10.3 K/mcL (4.3-11.1)
[2019-09-15 05:39] LABS: Calcium 8.8 mg/dL (8.6-10.3); Potassium 3.7 mEq/L (3.5-5.1)
[2019-09-15] MEDS: Insulin LISPRO 300 UNITS/3 ML VIAL SQ SCH ×3 (08:02→17:28)
[2019-09-15] MEDS: Furosemide 40 MG TABLET PO SCH ×2 (08:08→17:27)
[2019-09-15] MEDS: Multivit/Ca/Min/Fe/FA 1 TAB TABLET PO SCH (08:08)
[2019-09-15] MEDS: Aspirin Enteric Coated 81 MG Tablet PO SCH (08:08)
[2019-09-15] MEDS: Doxycycline 100 MG CAPSULE PO SCH ×2 (08:08→19:49)
[2019-09-15] MEDS: Loratadine 10 MG TABLET PO SCH (08:08)
[2019-09-15] MEDS: *HR* OxyCODONE/APAP 5/325 TABLET PO PRN ×2 (08:09→17:27)
[2019-09-15] MEDS: Fluticasone Propionate Nasal 50 MCG/SPRAY BOTTLE NS SCH (08:24)
[2019-09-15] MEDS ORDERED: Sucralfate 1 GM TABLET PO ONE (13:10)
[2019-09-15] MEDS: Insulin DETEMIR 100 UNIT/ML X5UNITS SQ SCH (21:00)
[2019-09-15] MEDS: *HR* Heparin 5,000 UNIT/ML VIAL SQ SCH (21:50)
[2019-09-16] MEDS: *HR* OxyCODONE/APAP 5/325 TABLET PO PRN (02:16)
[2019-09-16] MEDS: Ipratropium/Albuterol Neb 3 ML IH SCH ×2 (03:38→10:18)
[2019-09-16] MEDS: tiZANidine 4 MG TABLET PO PRN (04:58)
[2019-09-16] MEDS: *HR* Heparin 5,000 UNIT/ML VIAL SQ SCH (04:58)
[2019-09-16] MEDS: Furosemide 40 MG TABLET PO SCH (08:28)
[2019-09-16] MEDS: Aspirin Enteric Coated 81 MG Tablet PO SCH (08:28)
[2019-09-16] MEDS: Doxycycline 100 MG CAPSULE PO SCH (08:28)
[2019-09-16] MEDS: Multivit/Ca/Min/Fe/FA 1 TAB TABLET PO SCH (08:29)
[2019-09-16] MEDS: Fluticasone Propionate Nasal 50 MCG/SPRAY BOTTLE NS SCH (08:29)
[2019-09-16] MEDS: Loratadine 10 MG TABLET PO SCH (08:29)
[2019-09-16] MEDS: Insulin LISPRO 300 UNITS/3 ML VIAL SQ SCH (08:29)
[2019-09-16 09:26] VITALS: BP 110/66
== END 2019-09-16 11:10 ==
LOC: EMEROOGRE 13:32 → INTOOBSV 15:13 → INPGRE 15:13
PROVIDERS: ADMIT Family Medicine; ATTEND Family Medicine